=== PATIENT | female | born 1990 | race Hispanic/Latino ===

== ENCOUNTER 2021-06-01 09:24 | Inpatient (IN) | payer BC ==
[2021-06-01 10:56] VITALS: BMI 42.7
[2021-06-01] MEDS ORDERED: Bicitra 30 ML UDCUP PO PRN (11:29)
[2021-06-01] MEDS ORDERED: hydrALAZINE 20 MG/ML VIAL SLOW IVP PRN (11:29)
[2021-06-01] MEDS ORDERED: Promethazine HCl 25 MG/ML VIAL IM PRN ×2 (11:29→13:05)
[2021-06-01] MEDS ORDERED: Ondansetron PF 4 MG/2 ML Vial IVP PRN ×2 (11:29→13:05)
[2021-06-01] MEDS ORDERED: Famotidine/PF 20 mg/2ml Vial SLOW IVP PRN (11:29)
[2021-06-01] MEDS ORDERED: CEFAZOLIN 2 GM in Premix Bag 1 BAG IVPB SCH (11:30)
[2021-06-01] MEDS ORDERED: Calcium Gluc 4.6 MEQ/10 ML (100 MG/ML) SLOW IVP PRN (11:35)
[2021-06-01] MEDS ORDERED: hydrALAZINE 20 MG/ML VIAL ONE (11:37)
[2021-06-01] MEDS ORDERED: Magnesium Sulfate 20 gm/500 ml 20 GM/500 ML BAG IVPB SCH (11:45)
[2021-06-01] MEDS ORDERED: Magnesium Sulfate 20 gm/500 ml 20 GM/500 ML BAG ONE (11:50)
[2021-06-01 11:59] LABS: SARS-CoV-2 NAA Rapid Test Not Detected (NotDetected)
[2021-06-01] MEDS ORDERED: Magnesium Sulfate 20 GM/WATER 500 ML BAG IVPB SCH (12:00)
[2021-06-01 12:02] LABS: Hemoglobin 12.6 g/dL (12.0-15.5); Mean Corpuscular HGB CONC 32.8 g/dL (32.0-36.0); Mean Corpuscular Hemoglobin 30.7 pg (27.0-33.0); Mean Corpuscular Volume 93.4 fl (81.6-98.3); Mean Platelet Volume 12.8 fl (7.4-10.4); Platelet Count 143 10x3/uL (150-450); RBC Distribution Width 14.9 % (11.5-14.5); Red Blood Cell (RBC) Count 4.11 10x6/uL (3.90-5.03); White Blood Cell (WBC) Count 9.9 10x3/uL (3.5-10.5)
[2021-06-01 12:17] LABS: ALT (SGPT) 24 U/L (8-55); AST (SGOT) 32 U/L (5-34); Albumin 3.2 g/dL (3.5-5.0); Alkaline Phosphatase 228 U/L (40-110); Anion Gap 14 mmol/L (10-20); BUN (Urea Nitrogen) 8 mg/dL (7.0-18.7); Bilirubin, Total 0.5 mg/dL (0.2-1.2); Calc. Creatinine Clearance 206 mL/min (70-130); Calcium 8.8 mg/dL (7.8-10.44); Carbon Dioxide 20 mmol/L (22-29); Chloride 106 mmol/L (98-107); Globulin 3.3 g/dL (2.4-3.5); Glucose 81 mg/dL (70-105); Potassium 4.6 mmol/L (3.5-5.1); Protein, Total 6.5 g/dL (6.0-8.3); Sodium 135 mmol/L (136-145)
[2021-06-01 12:37] LABS: Hep B Surf Ag Non-Reactive S/CO (NonReactive)
[2021-06-01 12:38] LABS: Syphilis Antibody Nonreactive (Nonreactive); Syphilis Antibody Index 0.05 S/CO (<1.00 Non-Reactive)
[2021-06-01 12:43] LABS: HBSAg Index 0.18 S/CO (0-0.99)
[2021-06-01] MEDS ORDERED: Naloxone HCl 0.4 mg/ml Vial IV PRN (13:05)
[2021-06-01] MEDS ORDERED: Meperidine HCl/PF 25 MG/ML VIAL SLOW IVP PRN (13:05)
[2021-06-01] MEDS ORDERED: diphenhydrAMINE 50 MG/ML VIAL IVP PRN (13:05)
[2021-06-01] MEDS ORDERED: Ondansetron HCl/PF 4 MG/2 ML Vial IVP PRN (13:05)
[2021-06-01] MEDS ORDERED: Naloxone HCl 0.4 mg/ml Vial IVP PRN ×2 (13:05)
[2021-06-01] MEDS ORDERED: L&D-Morphine 4 MG/ML VIAL SLOW IVP PRN (13:05)
[2021-06-01] MEDS ORDERED: Fentanyl 100 MCG/2 ML VIAL SLOW IVP PRN (13:05)
[2021-06-01] MEDS ORDERED: Hydrocerin (Eucerin) Cream 120 gm Jar TOP PRN (13:05)
[2021-06-01] MEDS ORDERED: Ketorolac Tromethamine 30 MG/ML VIAL IVP PRN (13:05)
[2021-06-01] MEDS ORDERED: Promethazine HCl 25 MG SUPP PR PRN (13:05)
[2021-06-01] MEDS ORDERED: Communication Order-Pharmacy FS SCH (13:15)
[2021-06-01] MEDS ORDERED: Ketorolac Tromethamine 30 MG/ML VIAL IVP SCH (13:15)
[2021-06-01] MEDS ORDERED: Morphine PF 10 MG/10 ML VIAL ONE (15:47)
[2021-06-01] MEDS ORDERED: Oxytocin 10 UNITS/ML VIAL ONE (15:51)
[2021-06-01] MEDS ORDERED: Carboprost 250 MCG/ML AMP ONE (16:16)
[2021-06-01] MEDS ORDERED: Methylergonovine 0.2 MG/ML VIAL ONE (16:16)
[2021-06-01] MEDS ORDERED: Misoprostol 200 MCG TAB ONE (16:16)
[2021-06-01] MEDS: Lactated Ringer's 1,000 ML IV SCH ×2 (19:36→19:37)
[2021-06-02] MEDS: Lactated Ringer's 1,000 ML IV SCH (00:10)
[2021-06-02 06:14] LABS: Magnesium 6.3 mg/dL (1.6-2.6)
[2021-06-02] MEDS ORDERED: diphenhydrAMINE 25 MG CAP PO PRN (16:10)
[2021-06-02] MEDS ORDERED: Magnesium Sulfate 20 GM/WATER 500 ML BAG IVPB SCH (16:10)
[2021-06-02] MEDS ORDERED: Promethazine HCl 25 MG/ML VIAL IM PRN (16:10)
[2021-06-02] MEDS ORDERED: NS w/ Oxytocin 30 units 500 ML IV SCH (16:10)
[2021-06-02] MEDS ORDERED: Lanolin Ointment 7 GM TUBE TOP PRN (16:10)
[2021-06-02] MEDS ORDERED: Bisacodyl 10 MG SUPP PR PRN (16:10)
[2021-06-02] MEDS ORDERED: HYDROcodone/Acetaminophen 5/325 mg Tablet PO PRN (16:10)
[2021-06-02] MEDS ORDERED: Calcium Gluconate 4.6 MEQ in Sodium Chloride 0.9% 100 ML IVPB PRN (16:10)
[2021-06-02] MEDS ORDERED: Ondansetron PF 4 MG/2 ML Vial IVP PRN (16:10)
[2021-06-02] MEDS ORDERED: Meperidine HCl/PF 25 MG/ML VIAL IM PRN (16:10)
[2021-06-02] MEDS ORDERED: Boostrix 0.5 ML (Tdap) VIAL IM ONE (16:10)
[2021-06-02] MEDS ORDERED: hydrALAZINE 20 MG/ML VIAL SLOW IVP PRN (16:10)
[2021-06-02] MEDS ORDERED: Losartan 25 MG TAB PO SCH (16:30)
[2021-06-02] MEDS ORDERED: Prenatal Vitamin 1 TAB PO SCH (16:30)
[2021-06-02] MEDS: Ketorolac Tromethamine 30 MG/ML VIAL IVP SCH (16:35)
[2021-06-02] MEDS: HYDROcodone/Acetaminophen 5/325 mg Tablet PO PRN (16:37)
[2021-06-02] MEDS: Docusate Calcium (SURFAK) 240 MG CAP PO SCH (21:38)
[2021-06-02] MEDS: Ferrous Sulfate 325 MG TAB PO SCH (21:40)
[2021-06-03] MEDS: Ketorolac Tromethamine 30 MG/ML VIAL IVP SCH ×3 (00:05→13:53)
[2021-06-03] MEDS: HYDROcodone/Acetaminophen 5/325 mg Tablet PO PRN ×3 (00:05→15:24)
[2021-06-03] MEDS: Simethicone Chewable 80 MG TAB PO PRN ×2 (00:05→09:23)
[2021-06-03 05:03] LABS: Hemoglobin 11.5 g/dL (12.0-15.5); Mean Corpuscular Hemoglobin 31.1 pg (27.0-33.0); Mean Corpuscular Volume 91.4 fl (81.6-98.3); Mean Platelet Volume 10.8 fl (7.4-10.4); Platelet Count 146 10x3/uL (150-450); White Blood Cell (WBC) Count 12.6 10x3/uL (3.5-10.5)
[2021-06-03 07:42] VITALS: TEMP 98.3
[2021-06-03] MEDS ORDERED: Losartan 25 MG TAB PO SCH (09:00)
[2021-06-03] MEDS ORDERED: Prenatal Vitamin 1 TAB PO SCH (09:00)
[2021-06-03] MEDS: Ferrous Sulfate 325 MG TAB PO SCH (09:23)
[2021-06-03] MEDS: Docusate Calcium (SURFAK) 240 MG CAP PO SCH (09:23)
[2021-06-03 11:37] VITALS: BP 134/75
[2021-06-03] MEDS ORDERED: Ibuprofen 800 MG TAB PO SCH (22:00)
== END 2021-06-03 16:45 | disposition home or self-care (01) | DRG 788 ==
LOC: CSHLD 09:24 → CSHPP 06-02 18:35
PROVIDERS: ADMIT Family Medicine; ATTEND Family Medicine
PROC: 10D00Z1 Extraction of Products of Conception, Low, Open Approach (ICD-10-PCS; principal; 2021-06-01)
DX: O14.14 Severe pre-eclampsia complicating childbirth (principal); Z3A.38 38 weeks gestation of pregnancy; O34.211 Maternal care for low transverse scar from previous cesarean delivery; Z20.822 Contact with and (suspected) exposure to COVID-19
CPT/HCPCS: 36415; 51702; 80053; 81003; 83735; 85027; 86780; 86850; 86900; 86901; 87340; J0360; J1200; J1885; J2274; J2590; J3475; J7120; U0002

== ENCOUNTER 2021-12-05 21:54 | Emergency (ER) | payer BC ==
[2021-12-05 22:32] LABS: Bilirubin Neg (Negative); Blood, Urine 25 (Negative); Clarity Slightly Cloudy (Clear); Glucose, Urine (Dipstick) Normal (Negative); Ketone, Urine Negative (Negative); Leukocyte 500 (Negative); Nitrite Negative (Negative); Protein, Urine (Dipstick) 15 mg/dl (Neg-Trace); Specific Gravity, Urine 1.005 (1.002-1.036); Urobilinogen Normal mg/dL (Less than 2)
[2021-12-05 22:34] LABS: Pregnancy Test - Urine (BHCG) Negative (Negative); Pregu Control Background? CLEAR/WHITE (CLR/WHITE); Pregu Control Bar Appear? YES (CONTROL BAR); Specific Gravity 1.005 (1.002-1.036)
[2021-12-05] MEDS ORDERED: cefTRIAXone\\ROCEPHIN 1 GM VIAL ONE (22:35)
[2021-12-05 22:44] LABS: Squamous Epithelial 0-3 HPF (0-3); WBC/HPF 21-50 HPF (0-3)
[2021-12-05 22:45] LABS: Bacteria/HPF 2+ HPF (None Seen); Renal Epithelial 0-3 HPF (None Seen)
[2021-12-05 22:50] LABS: #Basophils 0.1 10x3/uL (0.0-0.2); #Eosinphils 0.3 10x3/uL (0.0-0.5); #Monocytes 1.2 10x3/uL (0.0-1.1); #Neutrophils 8.5 10x3/uL (1.5-8.4); %Basophils 0.4 % (0.0-2.0); %Eosinophils 2.4 % (0.0-6.0); %Lymphocytes 20.1 % (18.0-47.0); %Monocytes 9.8 % (0.0-10.0); %Neutrophils 66.7 % (40.0-75.0); Hemoglobin 12.4 g/dL (12.0-15.5); Mean Corpuscular HGB CONC 34.1 g/dL (32.0-36.0); Mean Corpuscular Hemoglobin 30.5 pg (27.0-33.0); Mean Corpuscular Volume 89.4 fl (81.6-98.3); Mean Platelet Volume 9.8 fl (7.4-10.4); Platelet Count 233 10x3/uL (150-450); RBC Distribution Width 12.1 % (11.5-14.5); Red Blood Cell (RBC) Count 4.07 10x6/uL (3.90-5.03); White Blood Cell (WBC) Count 12.7 10x3/uL (3.5-10.5)
[2021-12-05 23:08] LABS: ALT (SGPT) 96 U/L (8-55); AST (SGOT) 40 U/L (5-34); Albumin 4.2 g/dL (3.5-5.0); Alkaline Phosphatase 112 U/L (40-110); Anion Gap 18 mmol/L (10-20); BUN (Urea Nitrogen) 9 mg/dL (7.0-18.7); Bilirubin, Total 0.5 mg/dL (0.2-1.2); Calc. Creatinine Clearance 0 mL/min (70-130); Carbon Dioxide 22 mmol/L (22-29); Chloride 104 mmol/L (98-107); Globulin 3.2 g/dL (2.4-3.5); Glucose 113 mg/dL (70-105); Potassium 4.5 mmol/L (3.5-5.1); Protein, Total 7.4 g/dL (6.0-8.3); Sodium 139 mmol/L (136-145)
== END 2021-12-05 23:25 | disposition home or self-care (01) ==
LOC: CSHERS 21:54
DX: N12 Tubulo-interstitial nephritis, not specified as acute or chronic (principal)
CPT/HCPCS: 36415; 80053; 81003; 81015; 81025; 83605; 85025; 87040; 87077; 87086; 87186; 96365; J0696